=== PATIENT | male | born 1935 | race Caucasian/White ===

== ENCOUNTER → 2017-04-27 | Outpatient (CLI) | payer BC, MEDICARE ==
[~2017-04-27] MED LIST: ASPIRIN (CHILDR81 MG PO; ASPIRIN EC325 MG PO; ASPIRIN EC81 MG PO; ASPIRIN325 MG PO; ICAPS AREDS SO1 EACH PO; LUTEIN 15 MG S1 EACH PO; MOVE FREE JOIN1 EACH PO; PLAVIX75 MG PO; TYLENOL EXTRA500 MG PO; TYLENOL325 MG PO; XARELTO10 MG PO; XARELTO20 MG PO; ZYRTEC10 MG PO
[2017-04-27 15:48] LABS: BASOPHIL % 0.7 %; EOSINOPHIL # 0.1 K/uL (0.0-0.5); EOSINOPHIL % 1.5 %; HEMATOCRIT 36.5 % (33.0-50.0); HEMOGLOBIN 12.4 g/dL (11.0-16.0); IMMATURE GRANULOCYTE % 0.2 %; LYMPHOCYTE # 1.4 K/uL (0.8-4.0); LYMPHOCYTE % 31.4 %; MONOCYTE # 0.4 K/uL (0.0-1.0); MONOCYTE % 9.6 %; MPV 9.5 fl (9.4-12.4); NEUTROPHIL # (ANC) 2.6 K/uL (1.4-9.0); NEUTROPHIL % 56.6 %; NRBC % 0 /100WBC (0-0.00); PLATELET COUNT 215 K/uL (150-450); RBC 3.65 M/uL (3.50-5.50); RDW-CV 12.9 % (11.9-14.6); WBC 4.6 K/uL (4.0-11.0)
[2017-04-27 16:01] LABS: ALBUMIN 3.7 gm/dL (3.5-5.0); CALCIUM 9.2 mg/dL (8.5-10.5); TOTAL BILIRUBIN 0.8 mg/dL (0.0-1.5); TOTAL PROTEIN 7.9 g/dL (6.0-8.4)
== END ==
LOC: LNHI 15:38
PROVIDERS: Internal Medicine Interventional Cardiology
DX: I44.7 Left bundle-branch block, unspecified (principal); I48.0 Paroxysmal atrial fibrillation; Z95.0 Presence of cardiac pacemaker; I44.2 Atrioventricular block, complete; R55 Syncope and collapse

== ENCOUNTER → 2017-06-23 | Outpatient (CLI) | payer BC, MEDICARE | END | disposition disaster alternative care site (69) | LOC: GRAD 08:46 | DX: M79.604 Pain in right leg (principal); M79.605 Pain in left leg; M43.8X6 Other specified deforming dorsopathies, lumbar region; M43.17 Spondylolisthesis, lumbosacral region; M48.06 Spinal stenosis, lumbar region; M48.07 Spinal stenosis, lumbosacral region; R26.9 Unspecified abnormalities of gait and mobility; M84.48XD Pathological fracture, other site, subsequent encounter for fracture with routine healing; M47.896 Other spondylosis, lumbar region; M41.9 Scoliosis, unspecified ==